=== PATIENT | female | born 1960 ===

== ENCOUNTER 2020-01-13 01:28 | Inpatient (IN) | payer MEDICAID, OTHER ==
[~2020-01-13] VITALS: Ht 160 cm; Wt 74.0 kg
[2020-01-13] MEDS ORDERED: ONDANSETRON ODT 4 MG PO PRN (02:00)
[2020-01-13] MEDS ORDERED: DOCUSATE 100 MG CAPSULE PO PRN (02:00)
[2020-01-13] MEDS ORDERED: BISACODYL 10 MG SUPP PR PRN (02:00)
[2020-01-13] MEDS ORDERED: POLYETHYLENE GLYCOL 17 GM PACKET PO PRN (02:00)
[2020-01-13 02:26] VITALS: BP 143/85
[2020-01-13 03:42] VITALS: BP 143/85
[2020-01-13 04:22] LABS: MICROSCOPIC AUTO
[2020-01-13 08:14] VITALS: BP 137/91
[2020-01-13 08:39] LABS: BASOPHILS # (AUTO) 0.02 x10^3/uL (0-0.1); BASOPHILS % (AUTO) 0 % (0-1); EOSINOPHILS # (AUTO) 0.13 x10^3/uL (0-0.4); EOSINOPHILS % (AUTO) 2 % (1-7); LYMPHOCYTES # (AUTO) 2.24 x10^3/uL (1-3.4); LYMPHOCYTES % (AUTO) 32 % (22-44); MD NO; MEAN CORPUSCULAR HEMOGLOBIN 29.9 pg (27.0-34.8); MEAN CORPUSCULAR HGB CONC 33.3 g/dL (32.4-35.8); MEAN CORPUSCULAR VOLUME 89.7 fL (80-100); MEAN PLATELET VOLUME 7.4 fL (7.4-10.4); MONOCYTES # (AUTO) 0.52 x10^3/uL (0.2-0.8); MONOCYTES % (AUTO) 7 % (2-9); NEUTROPHILS # (AUTO) 4.06 x10^3/uL (1.8-6.8); NEUTROPHILS % (AUTO) 58 % (42-75); PLATELET COUNT 328 x10^3/uL (130-400); RED BLOOD COUNT 4.53 x10^6/uL (3.82-5.3); RED CELL DISTRIBUTION WIDTH 15.2 % (9.6-15.2)
[2020-01-13 08:42] LABS: ALBUMIN 3.5 g/dL (3.4-5.0); ANION GAP 8 mmol/L (5-15); BILIRUBIN, DIRECT 0.2 mg/dL (0.1-0.2); CHLORIDE 108 mmol/L (98-107)
[2020-01-13 09:07] LABS: ALANINE AMINOTRANSFERASE 20 U/L (12-78); ALKALINE PHOSPHATASE 76 U/L (45-117); BILIRUBIN,INDIRECT 0.5 mg/dL (0.0-2.0); BILIRUBIN,TOTAL 0.7 mg/dL (0.2-1.0); CHOL/HDL RATIO 2.2; CHOLESTEROL, TOTAL 216 mg/dL (140-239); CREATININE 0.71 mg/dL (0.55-1.02); FREE T4 (FREE THYROXINE) 0.95 ng/dL (0.76-1.46); HDL CHOL % 45 % (28-40); HDL CHOLESTEROL (DIRECT) 98 mg/dL (40-60); LDL CHOLESTEROL,CALCULATED 100 mg/dL (54-169); TOTAL PROTEIN 7.3 g/dL (6.4-8.2); TRIGLYCERIDES 89 mg/dL (50-200); VLDL CHOLESTEROL 18 mg/dL (0-25)
[2020-01-13] MEDS: PROPRANOLOL 40 MG TABLET PO SCH ×2 (11:30→18:36)
[2020-01-13] MEDS ORDERED: DICLOFENAC 50 MG TABLET.DR PO PRN (11:30)
[2020-01-13] MEDS: LORazepam 1MG TABLET PO PRN ×2 (11:32→11:36)
[2020-01-13] MEDS: LORazepam 1MG TABLET PO SCH ×3 (14:00→20:38)
[2020-01-13] MEDS: LEFLUNOMIDE 20 MG TABLET PO SCH (14:18)
[2020-01-13] MEDS: HYDROXYCHLOROQUINE 200 MG TABLET PO SCH (14:22)
[2020-01-13 20:20] VITALS: BP 146/78
[2020-01-13] MEDS: ZOLPIDEM 10MG TABLET PO PRN (21:02)
[2020-01-14] MEDS: PROPRANOLOL 40 MG TABLET PO SCH ×2 (06:10→18:21)
[2020-01-14 07:35] VITALS: BP 143/88
[2020-01-14] MEDS: FOLIC ACID 1 MG TABLET PO SCH (09:35)
[2020-01-14] MEDS: LORazepam 1MG TABLET PO SCH ×3 (09:35→20:47)
[2020-01-14] MEDS: LEFLUNOMIDE 20 MG TABLET PO SCH (10:05)
[2020-01-14] MEDS: HYDROXYCHLOROQUINE 200 MG TABLET PO SCH (10:06)
[2020-01-14] MEDS: HYDROXYZINE PAMOATE 25MG CAP PO PRN ×2 (13:03→22:06)
[2020-01-14 20:01] VITALS: BP 143/83
[2020-01-14] MEDS: ZOLPIDEM 10MG TABLET PO PRN (20:47)
[2020-01-15] MEDS: PROPRANOLOL 40 MG TABLET PO SCH (06:23)
[2020-01-15 07:29] VITALS: BP 99/57
[2020-01-15] MEDS: FOLIC ACID 1 MG TABLET PO SCH (09:00)
[2020-01-15] MEDS: LEFLUNOMIDE 20 MG TABLET PO SCH (09:00)
[2020-01-15] MEDS: HYDROXYCHLOROQUINE 200 MG TABLET PO SCH (09:01)
[2020-01-15] MEDS: LORazepam 1MG TABLET PO SCH (09:01)
[2020-01-15 09:04] VITALS: BP 129/81
[2020-01-15] MEDS ORDERED: TRINTELLIX HOMEMEDPO (10:45)
[2020-01-15] MEDS ORDERED: FOLI-17 PO (10:45)
[2020-01-15] MEDS ORDERED: ZOLP10TA PO (10:45)
[2020-01-15] MEDS ORDERED: LORA-446 PO (10:45)
[2020-01-15] MEDS ORDERED: PROP40TA PO (10:45)
[2020-01-15] MEDS ORDERED: HYDR200T5 PO (10:45)
[2020-01-15] MEDS ORDERED: DICL50TA4 PO (10:45)
[2020-01-15] MEDS ORDERED: LEFL20TA PO (10:45)
== END 2020-01-15 13:00 | disposition home or self-care (01) | DRG 751 ==
LOC: 3E 02:15
PROVIDERS: ADMIT Psychiatry & Neurology Psychosomatic Medicine; ATTEND Psychiatry & Neurology Psychosomatic Medicine
DX: F33.2 Major depressive disorder, recurrent severe without psychotic features (principal); E66.9 Obesity, unspecified; F41.0 Panic disorder [episodic paroxysmal anxiety]; F41.1 Generalized anxiety disorder; F43.10 Post-traumatic stress disorder, unspecified; G47.00 Insomnia, unspecified; G89.29 Other chronic pain; M54.9 Dorsalgia, unspecified; M06.9 Rheumatoid arthritis, unspecified; Z88.6 Allergy status to analgesic agent; Z91.013 Allergy to seafood; Z91.018 Allergy to other foods; Z59.0 Homelessness; Z90.710 Acquired absence of both cervix and uterus; Z68.28 Body mass index [BMI] 28.0-28.9, adult
CPT/HCPCS: 36415; 71045; 80048; 80061; 80076; 81001; 82140; 82607; 84439; 84443; 85025; 87077; 87086; 87186; 93005